=== PATIENT | female | born 1935 | race African-American/Black ===

== ENCOUNTER → 2018-04-05 | Outpatient (CLI) | payer MEDICARE ==
--- NOTE | 2018-04-05 13:27 | RADIOLOGY REPORT (SQ) ---
EXAM DESCRIPTION: CT SOFT TISSUE NECK WITHOUT COMPLETED DATE/TIME: 04/05/2018 1:06 pm REASON FOR STUDY: THROAT PAIN (R07.0), NECK FULNESS (R22.1) R22.1 LOCALIZED SWELLING, MASS AND LUMP , NECK COMPARISON: CT soft tissue neck 07/04/2015 TECHNIQUE: Noncontrast scanning from skull base through lung apices with review of bone, soft tissue and lung windows. Reconstructed coronal and sagittal MPR images reviewed. All images stored on PAC S. All CT scanners at this facility use dose modulation, iterative reconstruction, and/or weight based d osing when appropriate to reduce radiation dose to as low as reasonably achievable (ALARA). [facility]: Dose Right [facility]: CareDose [facility]: Dose Right [facility]: Teradose 4D [facility]: [employer] RADIATION DOSE: 20 mGy. LIMITATIONS: Streak artifact from metallic dental work FINDINGS: SKULL BASE: No acute findings. 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 MAJOR SALIVARY GLANDS: No solid or cystic masses. No inflammatory changes. LYMPHADENOPATHY: No adenopathy. MUCOSAL MASSES OR ASYMMETRY: No mucosal masses. There is medial deviation of the left ICA which resi bola in the prevertebral space, causing a bulge into the left hypopharynx on axial images 48-57. LARYNX/CORDS: No abnormal findings. LUNG APICES: Clear. BONES: No acute fracture. Mild multilevel foraminal narrowing from facet and uncovertebral hypertrop hy THYROID: Normal size. No masses. PARANASAL SINUSES: Clear. OTHER: No other significant finding. IMPRESSION: NO SIGNIFICANT FINDING IN THE SOFT TISSUES OF THE NECK. TECHNICAL DOCUMENTATION: JOB ID: [id number] Quality ID # [id number]: Final reports with documentation of one or more dose reduction techniques (e.g., Au tomated exposure control, adjustment of the mA and/or kV according to patient size, use of iterative reconstruction technique) 2010 [employer]- All Rights Reserved Reading location - IP/workstation name: [email or web address]
== END ==
LOC: RAD 04-02 08:44
PROVIDERS: ATTEND Otolaryngology
DX: R22.1 Localized swelling, mass and lump, neck (principal)
CPT/HCPCS: 70490